=== PATIENT | female | born 1935 | race Caucasian/White ===

== ENCOUNTER → 2017-02-28 | Outpatient (CLI) | payer OTHER | LOC: FIMAGING 11:25 | PROVIDERS: ATTEND Internal Medicine | DX: Z12.31 Encounter for screening mammogram for malignant neoplasm of breast (principal) | CPT/HCPCS: G0202 ==

== ENCOUNTER 2017-11-12 20:00 | Emergency (ER) | payer OTHER ==
--- NOTE | 2017-11-12 20:09 | EDPHY ---
H & P Time Seen by Provider: 11/12/17 20:03 HPI/ROS: HPI Slurred speech, unsteady gait. 82-year-old female by ambulance from a local restaurant. She was eating dinner with her friend. She had a reported 2-3 glasses of wine. He felt that she seemed unsteady on her feet, Had slurred speech and had a possible right-sided facial droop. A physician friend of hers coincidently happen to be at this restaurant also. Because of this he thought she might be having a stroke and she was sent here emergently. On arrival the patient tells me"I am not having a stroke, I had a little bit too much to drink and I did not eat enough with it. I otherwise feel fine". At this time she has no complaints. ROS: Constitutional: No fever, no chills. As above. Eyes: No discharge. No changes in vision. ENT: No sore throat. No nasal congestion or rhinorrhea. Respiratory: No cough. No shortness of breath. Cardiac: No chest pain, no palpitations. Gastrointestinal: No abdominal pain, no vomiting, no diarrhea. Genitourinary: No hematuria. No dysuria or increased frequency with urination. Musculoskeletal: No back pain. No neck pain. No myalgias or arthralgias. Skin: No rashes. Neurological: No headache. No focal weakness or altered sensation. As above. Past medical history: Hypertension Social history: Lives alone but has family and friends close by. Non-smoker. Social alcohol. Physical Exam: General Appearance: Alert, no distress. Appears mildly intoxicated. Odor of alcohol on her breath. This patient is responding to questions appropriately and in full sentences albeit with mild slurred speech. This patient appears well-hydrated and well-nourished. Eyes: Pupils equal and round no pallor or injection. No lid edema, erythema or injection. No nystagmus. No photophobia. ENT, Mouth: Mucous membranes are moist. The pharyngeal tissues are unremarkable. No edema or swelling. No asymmetry suggestive of abscess. No erythema or exudates. Respiratory: There are no retractions, lungs are clear to auscultation with good air movement bilaterally. Cardiovascular: Regular rate and rhythm. No murmur. Gastrointestinal: Abdomen is soft and nontender, no masses, bowel sounds normal. No focal tenderness at McBurney's point. No Drake sign. Neurological: Motor sensory function is grossly intact. Cranial nerves are normal. Able to ambulate on her own. Slightly unsteady.. Skin: Warm and dry, no rashes. Musculoskeletal: Neck is supple and nontender. Extremities are symmetrical. All joints range without pain or impingement. Psychiatric: No agitation. No depression. Database: EKG: EKG time is 8:33 p.m.; EKG shows a narrow complex normal sinus rhythm with a ventricular rate of 70. The CO, QRS, QT intervals are within normal limits. There are no ST-T wave changes indicative of ischemic or injury pattern. No evidence of right heart strain. Interpreted by me. Imaging: Head CT without contrast: Negative for acute pathology. Age-related changes only. Results were discussed with staff radiologist Dr. Carlos Lopez. Chest x-ray PA and lateral; the cardiac mediastinal silhouette is unremarkable. No evidence of infiltrate or pneumothorax. No acute cardiopulmonary disease process noted. Interpreted by me. Carotid artery Doppler ultrasounds: Normal. Results were discussed with staff radiologist Dr. Carlos Lopez. Procedures: Emergency department course: IV placed. She was placed on a youth nutritional monitor. Vital signs reviewed. EKG obtained and reviewed by myself. After my initial neurologic Assessment she was sent for CT head without contrast. 8:40 p.m., patient re-evaluated. Resting comfortably at this time. She is asking to go home. Repeat neurologic Assessment is nonfocal. Her serum alcohol is 160. We are trying to contact a family member currently. 8:50 p.m., patient re-evaluated. Daughters and friend are at the bedside. I discussed her presentation as well as emergency department workup. Repeat neurologic assessment on this patient is nonfocal. She is able to ambulate under her own power without difficulty. I feel her presentation is consistent with alcohol intoxication And CVA is unlikely. Her daughters feel comfortable taking her home. They will watch her tonight. They can easily return the patient to the emergency department if needed. She will follow up with her primary care physician as needed tomorrow. Return to emergency department precautions were thoroughly discussed with the patient and her family. All of their questions were answered. The patient was discharged in good condition with her daughters. Differential Diagnosis: The differential diagnosis on this patient includes but is not limited to alcohol intoxication. CVA, TIA unlikely. This represents a partial list of diagnoses considered. These considerations are based on history, physical exam , past history, reassessment and diagnostic testing. Smoking Status: Never smoked Constitutional: Initial Vital Signs O2 Sat (%) 94 11/12/17 20:00 O2 Delivery Mode Room Air O2 (L/minute) 1 Allergies/Adverse Reactions: prochlorperazine edisylate [From Compazine] Allergy (Severe, Verified 03/10/11 03:44) THROAT SWELLS prochlorperazine maleate [From Compazine] Allergy (Severe, Verified 03/10/11 03: 44) THROAT SWELLS Penicillins Allergy (Verified 11/27/12 10:04) RASH- YEARS AGO Home Medications: Medication Instructions Recorded Acetaminophen/ASA/Caffeine 1 each PO PRN PRN 11/16/12 [Excedrin Tablet (OTC)] Cetirizine [ZyRTEC] 10 mg PO DAILY 11/16/12 Cholecalciferol (Vitamin D3) 2,000 unit PO DAILY 11/16/12 [Vitamin D3] Estradiol [ESTRADIOL] 0.5 mg PO SUTUTHSA 11/16/12 HYDROcodone/APAP 10/325 [[place] 1 each PO PRN PRN 11/16/12 10/325] Herbals/Supplements -Info Only 1 each PO AD 11/16/12 Levothyroxine [Synthroid 175 mcg 350 mcg PO DAILY 11/16/12 (RX)] Losartan Potassium [Cozaar 50 mg 50 mg PO DAILY 11/16/12 (RX)] Magnesium Oxide [Magnesium Oxide 400 mg PO DAILY 11/16/12 400 mg (OTC)] Multivit with Calcium,Iron,Min 1 each PO DAILY 11/16/12 [Tab A Franko] Naproxen 375 mg PO PRN PRN 11/16/12 Niacin [Niacin 500 mg (OTC)] 1,000 mg PO HS 11/16/12 Stuart-3 Fatty Acids/Fish Oil [Fish 1 each PO BID 11/16/12 Oil Extra Strength Sftgel] Low Altitude [employer] Defense Gunner Completed 11/16/12 11/16/12 Sertraline HCl 50 mg PO SUTUTHSA 11/16/12 Simvastatin 10 mg PO DAILY 11/16/12 Ubidecarenone [Co Q-10] 200 mg PO DAILY 11/16/12 Vitamin E [Vitamin E 400 units 400 unit PO DAILY 11/16/12 (OTC)] Zinc Gluconate [Zinc] 50 mg PO DAILY 11/16/12 celeCOXIB [Celebrex] 200 mg PO DAILY PRN 11/16/12 Cephalexin [Keflex] 500 mg PO TID 7 Days cap 10/03/15 Hydrocodone/APAP 5/325 [[place]unt[place] 1 tab PO Q6 PRN #15 tab 10/03/15 5/325 (RX)] Medical Decision Making - Data Points Laboratory Results: Laboratory Results 11/12/17 20:05 11/12/17 20:05 Departure - Departure Disposition: Home, Routine, Self-Care Clinical Impression: Alcohol intoxication Condition: Good Instructions: Alcohol Intoxication (ED) Additional Instructions: Read and follow provided instructions. Follow-up with your primary care physician tomorrow for re-evaluation. Take your medication as prescribed. Return to the emergency department for worsening symptoms, headache, loss of sensation or weakness in your extremities, heart palpitations, chest pain or other serious concerns. Referrals: Patient,NotPresent [Unknown] - As per Instructions
[2017-11-12 20:11] LABS: PLATELET COUNT 341 10^3/uL (150-400)
[2017-11-12 20:23] LABS: INR 0.96 (0.83-1.16)
--- NOTE | 2017-11-12 20:41 | CPEKG ---
Heart Rate: 70 RR Interval: 857 P-R Interval: 216 QRSD Interval: 78 QT Interval: 412 QTC Interval: 445 P [place]: 68 QRS [place]: -4 T Wave [place]: 41 EKG Severity - NORMAL ECG - EKG Impression: SINUS RHYTHM Electronically Signed By: West Breen 12-Nov-2017 21:10:25
[2017-11-12 21:33] VITALS: BP 112/76
== END 2017-11-12 21:33 | disposition home or self-care (01) ==
LOC: EDUNIT#
DX: F10.129 Alcohol abuse with intoxication, unspecified (principal); I10 Essential (primary) hypertension
CPT/HCPCS: 82947-QW; G0480

== ENCOUNTER → 2018-07-03 | Outpatient (CLI) | payer OTHER | LOC: FIMAGING 11:46 | PROVIDERS: ATTEND Internal Medicine | DX: M48.061 Spinal stenosis, lumbar region without neurogenic claudication (principal); M43.16 Spondylolisthesis, lumbar region; M53.86 Other specified dorsopathies, lumbar region ==

== ENCOUNTER 2018-08-15 05:14 | Inpatient (IN) | payer OTHER ==
[2018-08-15] MEDS ORDERED: LR 1,000 ML IV ONE (05:41)
[2018-08-15] MEDS ORDERED: LIDOCAINE 1% 2 ML INJ ID PRN (05:41)
[2018-08-15] MEDS ORDERED: GABAPENTIN 300 MG CAP PO ONE (05:41)
[2018-08-15] MEDS ORDERED: ceFAZolin 2 GM/DEXTROSE 100 ML IV ONE (05:41)
[2018-08-15] MEDS ORDERED: ACETAMINOPHEN 500 MG TAB PO ONE (05:41)
[2018-08-15] MEDS ORDERED: QUEtiapine FUMARATE 25 MG TAB PO PRN (06:24)
--- NOTE | 2018-08-15 06:24 | PDHPUP ---
History & Physical Update H&P update statement: This history and physical update is based on an assessment of the patient which was completed after admission or registration (within 24 hours), but prior to the surgery/procedure. H&P update: H&P reviewed & patient examined, no change in patient's condition since H&P completed
[2018-08-15] MEDS ORDERED: EPINEPHrine 1 MG/ML INJ ONE (06:29)
[2018-08-15] MEDS ORDERED: BUPIVACAINE 0.25% 30 ML SDV ONE (06:29)
[2018-08-15] MEDS ORDERED: THROMBIN (BOVINE) 5,000 UNIT VIAL TP ONE (06:29)
[2018-08-15] MEDS ORDERED: CHLORHEXIDINE GLUC HIBICLENS 118 ML BTL TP ONE (06:29)
[2018-08-15] MEDS ORDERED: BACITRACIN 50,000 UNITS/10 ML SYR IRR ONE (06:30)
--- NOTE | 2018-08-15 06:49 | PDANEPAE ---
ANE History of Present Illness lumbar spinal stenosis ANE Past Medical History - Cardiovascular History Hx Hypertension: No Hx Arrhythmias: No Hx Chest Pain: No Hx Coronary Artery / Peripheral Vascular Disease: No Hx CHF / Valvular Disease: No Hx Palpitations: No - Pulmonary History Hx COPD: No Hx Asthma/Reactive Airway Disease: No Hx Recent Upper Respiratory Infection: No Hx Oxygen in Use at Home: No Hx Sleep Apnea: No Sleep Apnea Screening Result - Last Documented: Negative - Neurologic History Hx Cerebrovascular Accident: No Hx Seizures: No Hx Dementia: No - Endocrine History Hx Diabetes: No Hypothyroid: No Hyperthyroid: No Obesity: no - Renal History Hx Renal Disorders: No - Liver History Hx Hepatic Disorders: No - Neurological & Psychiatric Hx Hx Neurological and Psychiatric Disorders: No - Cancer History Hx Cancer: No - Congenital Disorder History Hx Congenital Disorders: No - GI History GERD: no Hx Gastrointestinal Disorders: No - Other Health History Other Health History: none - Chronic Pain History Chronic Pain: No - Surgical History Prior Surgeries: none in last 5yrs. bilat knee replacements ANE Review of Systems Review of systems is: negative Review of Systems: - Exercise capacity METS (RN): 4 METS ANE Patient History - Allergies Allergies/Adverse Reactions: prochlorperazine edisylate [From Compazine] Allergy (Severe, Verified 08/07/18 16:48) THROAT SWELLS prochlorperazine maleate [From Compazine] Allergy (Severe, Verified 08/07/18 16: 48) THROAT SWELLS Penicillins Allergy (Verified 08/07/18 16:48) RASH- YEARS AGO - Home Medications Home medications: home medication list seen and reviewed Home Medications: Aspirin [Aspirin 325 mg (*)] 325 mg PO DAILY PRN 08/02/18 [Last Taken 08/12/18] QUEtiapine FUMARATE [Seroquel 25 mg (*)] 25 mg PO HS PRN 08/02/18 [Last Taken ] - NPO status NPO Status: no food or drink >8 hours NPO Since - Liquids (Date): 08/14/18 NPO Since - Liquids (Time): 18:00 NPO Since - Solids (Date): 08/14/18 NPO Since - Solids (Time): 18:00 - Anes Hx Anes Hx: no prior problems - Smoking Hx Smoking Status: Former smoker - Alcohol Use Alcohol Use: Rarely - Family Anes Hx Family Anes Hx: none Family Hx Anesthesia Complications: none ANE Labs/Vital Signs - Vital Signs Blood Pressure: 148/96 Heart Rate: 80 Respiratory Rate: 16 O2 Sat (%): 92 Height: 157.48 cm Weight: 58.967 kg ANE Physical Exam - Airway Neck exam: FROM Mallampati Score: Class 2 Mouth exam: normal dental/mouth exam - Pulmonary Pulmonary: no respiratory distress, clear to auscultation - Cardiovascular Cardiovascular: regular rate and rhythym, no murmur, rub, or gallop - ASA Status ASA Status: II ANE Anesthesia Plan Anesthesia Plan: general endotracheal anesthesia
[2018-08-15] MEDS ORDERED: fentaNYL 250 MCG/5 ML INJ ONE (06:57)
[2018-08-15] MEDS ORDERED: PROPOFOL/EMULSION 500 MG/50 ML BOTTLE IV ONE (06:58)
[2018-08-15] MEDS ORDERED: KETAMINE 200 MG/20 ML VIAL ONE (06:58)
[2018-08-15] MEDS ORDERED: LIDOCAINE 2% 5 ML SDV ONE (07:01)
[2018-08-15] MEDS ORDERED: SUCCINYLCHOLINE CHLORIDE 200 MG/10 ML SYR IVP ONE (07:02)
[2018-08-15] MEDS ORDERED: ONDANSETRON 4 MG/2 ML VIAL IVP PRN (07:27)
[2018-08-15] MEDS ORDERED: HYDROmorphONE/DILAUDID 1 MG/ML INJ IVP PRN (07:27)
[2018-08-15] MEDS ORDERED: ONDANSETRON DISINTEGRATING 4 MG TAB PO PRN (07:27)
[2018-08-15] MEDS ORDERED: diphenhydrAMINE 25 MG CAP PO PRN (07:27)
[2018-08-15] MEDS ORDERED: BISACODYL 10 MG SUPP PR PRN (07:27)
[2018-08-15] MEDS ORDERED: LACTULOSE 20 GM/30 ML UDCUP PO PRN (07:27)
[2018-08-15] MEDS ORDERED: NS 1,000 ML IV SCH (07:30)
[2018-08-15] MEDS ORDERED: LABETALOL HCL 5 MG/ML 20 ML MDV ONE (08:03)
[2018-08-15] MEDS ORDERED: ePHEDrine SULFATE 25 MG/5 ML SYR ONE (08:03)
[2018-08-15] MEDS ORDERED: NALOXONE HCL 0.4 MG/ML INJ IVP PRN (11:03)
[2018-08-15] MEDS ORDERED: LR 500 ML IV PRN (11:03)
[2018-08-15] MEDS ORDERED: MEPERIDINE 25 MG/0.5 ML AMP IVP PRN (11:03)
[2018-08-15] MEDS ORDERED: fentaNYL 100 MCG/2 ML INJ IVP PRN (11:03)
--- NOTE | 2018-08-15 11:03 | POSTANESTH ---
Post Anesthetic Evaluation Cardiovascular Status: Normal, Stable Respiratory Status: Normal, Stable Level of Consciousness/Mental Status: Mildly Sleepy, Arousable Pain Control: Adequate, Prn Tx Ordered Nausea/Vomiting Control: Adequate, Prn Tx Ordered Complications Possibly Related to Anesthesia: None Noted
--- NOTE | 2018-08-15 11:05 | PDMN ---
Medical Necessity Medical necessity: Pt meets IP criteria as of 08/15/[address] [facility] S-820 ( Lumbar Fusion); Medicare IP only procedure
[2018-08-15] MEDS ORDERED: fentaNYL 100 MCG/2 ML INJ ONE (12:03)
--- NOTE | 2018-08-15 12:08 | POSTOPPROG ---
Post Op Note Date of Operation: 08/15/18 Surgeon: Xuan Walker Lump Room Supervisor: ROSE Jones Anesthesiologist: MD Sandra Anesthesia: GET(General Endotracheal), Local (Specify) Pre-op Diagnosis: lumbar stenosis L3/4 and L4/5 Post-op Diagnosis: lumbar stenosis L3/4 and L4/5 Indication: LBP Procedure: L3/4 and L4/5 TLIF Findings: see op report Inf/Abcess present in the surg proc area at time of surgery?: No Depth: Deep Incisional (Fascial) EBL: 100-500 Total fluids administered: see anesthesia record Complications: none Drains: Choco Pan
[2018-08-15] MEDS ORDERED: METHOCARBAMOL 750 MG TAB ONE (12:12)
--- NOTE | 2018-08-15 12:12 | SOAPPROG ---
SOAP Progress Note Assessment/Plan: Post Op Visit: S: Awake and alert. NAD. Pt with lower back pain O: AFVSS/PERRLA/EOMI no droop CN 2-12 grossly intact +lt touch 5/5 BUE/BLE = CDI NADJA in place A/P: 83 yo female that is s/p TLIF L3/4 and L4/5 -orders in place -PT/OT pending -brace when out of bed -post op xrays in am -call with any questions or concerns -pt seen by Dr Walker as well Objective: Vital Signs Temp Pulse Resp BP Pulse Ox 36.4 C 80 16 148/96 H 92 08/15/18 11:52 08/15/18 06:54 08/15/18 06:54 08/15/18 06:54 08/15/18 06:54 ICD10 Worksheet Patient Problems: Problems Problem Status Onset Arthrodesis status Acute Lumbago Acute Lumbar stenosis Acute - ICD10 Problem Qualifiers (1) Lumbar stenosis (2) Lumbago (3) Arthrodesis status
[2018-08-15] MEDS: METHOCARBAMOL 750 MG TAB PO PRN (12:31)
--- NOTE | 2018-08-15 12:41 | GOP ---
DATE OF OPERATION: 08/15/2018 SURGEON: Ghazala Walker MD NEUROSURGEON: Ghazala Walker M.D. PALLET RECTIFIER: Edmond Jones PA-C PREOPERATIVE DIAGNOSIS: Lumbar instability with lumbar spondylolisthesis, L3-4, L4-5, lumbar stenosi s, axial low back pain, lumbosacral radiculopathy. POSTOPERATIVE DIAGNOSIS: Lumbar instability with lumbar spondylolisthesis, L3-4, L4-5, lumbar stenos is, axial low back pain, lumbosacral radiculopathy. PROCEDURE PERFORMED: Posterior lateral and intervertebral arthrodesis with bilateral decompressions L3-4, L4-5 (96576, [id number]), posterior segmental instrumentation L3, L4, L5 (29590), placement of biome chanical intervertebral device L3-4, L4-5 (32913 x 2), same incision bone graft harvest, spinal stere otaxis, microscope. FINDINGS: ESTIMATED BLOOD LOSS: 200 cc. INDICATIONS: The patient is an 83-year-old with terrible axial low back pain. She has intermittent radiating pain into her legs, but on the day of surgery she actually was not suffering from right leg pain. She has a lot of right knee pain. MRI demonstrated very severe stenosis at L4-5 and severe s tenosis at L3-4. There is even some early changes at L2-3 but nothing critical at that level and I s uggested a 2-level fusion with hardware and bilateral decompressions at each level. The risk of cont inued symptoms, nerve injury, spinal fluid leak, pseudoarthrosis and the possible need for additional spine surgery including revision spine surgery was discussed. She knew there was a chance surgery ma y fail to eliminate any symptoms. She also knew her surgical risks were increased given her advanced age. She wanted to proceed despite these risks. DESCRIPTION OF PROCEDURE: The patient was taken to the operating room, placed in a supine position. General anesthesia was begun. She was flipped prone on the Choco table. Care was taken to pad al l points of contact. Her back was sterilely prepped and draped in the usual fashion. A localizing x -ray was taken. I made a 6.5 cm incision above the L3-4, L4-5 interspaces. Subcutaneous tissue was dissected using Bovie cautery down to the fascia and a subperiosteal dissection was made down the barrera phil at L3, L4 and L5. The inferior lamina of L2 was exposed. A self-retaining retractor was placed. Localizing x-rays were taken. We denuded the bilateral hypertrophic facet joints at L3-4, L4-5, att ached a stealth reference frame to the L4 spinous process, performed an O-arm spin and using frame th e Stealth stereotaxy, placed pedicle screws bilaterally at L3, L4 and L5. They all stimulated at acc eptable levels. 3D imaging was performed demonstrating good position of all the hardware. We then t ook a pre bent serena, put it down over the screws at L3, 4, 5, placed a self-retaining retractor, distr acted between L3, 4, 5 and got some reduction of the spondylolisthesis, removed all the soft tissue o f the bone at L3, 4, 5, harvested the L4 spinous process, the inferior L3 spinous process and the ros tral L5 spinous process for autologous grafting purposes. We then drilled bilateral laminas at L3-4, L4-5 to decompress the thecal sac and the neuroforamen bilaterally and on the microscope we did perf orm radical bilateral decompressions on each side including the foramen on the left. We removed the left L3-4 and 4-5 facet joints. We then mobilized the traversing L4 root and the traversing L5 root at the 3-4, 4-5 level respectively, swept it medially, incised the L3-4 disk, removed the disk and th e cartilaginous endplates. We roughened the subchondral bone to create arthrodesis at 3-4 and we did likewise at 4-5 where we removed the disk and the cartilaginous endplates. We roughened the subchon dral bone to create arthrodesis at those levels. We then packed bone autograft and BMP into each spa ce and they had been properly sized and we chose 7 x 28 mm expandable devices that were inserted unde r fluoroscopic guidance. They were then expanded and the L3-4 device impacted slightly into the L4 r ostral vertebral body, but it was in excellent position. The L4-5 device looked terrific. They were both in a very good position and I was happy with the device placement. We then decorticated all th e remaining bone posterolaterally bilaterally. We relaxed our distraction between L3-4, 4-5 to creat e more lordosis and then final tightened the cap screws according to company's specification. We the n placed bone autograft and BMP posterolaterally bilaterally followed by a subfascial drain. We then closed the incision in multiple layers using Vicryl sutures. Steri-Strips were applied to the skin. The patient was reversed from anesthesia, extubated and transferred to recovery room in stable cond ition. There were no complications. COMPLICATIONS: None. INSTRUMENTATION USED: [employer] 5.5 mm system with titanium serena. We used 7 x 28 mm cages at each level. /[id number]/MODL
[2018-08-15] MEDS: ceFAZolin 2 GM/DEXTROSE 100 ML IV SCH ×2 (14:05→21:33)
[2018-08-15] MEDS: ACETAMINOPHEN 500 MG TAB PO SCH ×2 (14:09→21:32)
[2018-08-15] MEDS: GABAPENTIN 300 MG CAP PO SCH ×2 (14:10→21:32)
[2018-08-15] MEDS: FAMOTIDINE 20 MG TAB PO SCH ×2 (14:11→21:32)
[2018-08-15] MEDS: SENNOSIDES/DOCUSATE SODIUM TAB PO SCH ×2 (14:11→21:33)
[2018-08-15] MEDS ORDERED: NS BOLUS 500 ML (Wide open) IV ONE (18:00)
[2018-08-15 19:32] LABS: PLATELET COUNT 164 10^3/uL (150-400)
[2018-08-16 05:50] LABS: PLATELET COUNT 159 10^3/uL (150-400)
[2018-08-16] MEDS: ACETAMINOPHEN 500 MG TAB PO SCH ×3 (06:28→21:38)
[2018-08-16] MEDS: GABAPENTIN 300 MG CAP PO SCH ×3 (06:29→21:37)
--- NOTE | 2018-08-16 06:36 | NEUSURGPN ---
Date of Surgery: 08/15/18 Post Op Day: 1 Assessment/Plan: Assessment: 83 yo female that is s/p TLIF L3/4 and L4/5 POD #1 Plan: -s/p TLIF L3/4 and L4/5: pt with expected lower back pain -orders in place -PT/OT pending -brace when out of bed -NADJA in place-475 since surgery-will continue with drain. 55 in last 12 hrs. -UO is normal now. UA shows 1+ leuks-UC ordered. Creat 0.7. H/H fine -post op xrays in am -call with any questions or concerns -pt seen by Dr Walker as well Subjective: Awake and alert. NAD. Eating/drinking and voiding. No f/c/n/v/d. Objective: AFVSS/PERRLA/EOMI no droop CN 2-12 grossly intact +lt touch 5/5 BUE/BLE = CDI NADJA in place Neuro Check Frequency: per routine Urinary Catheter in Place: No Catheter Insertion Date: 08/15/18 - Physician Discussed Patient with Dr.: Aaron Patient Seen by : Aaron Neurosurgery Physical Exam - Vitals, I&O, Labs I and O 08/15/18 08/16/18 08/17/18 05:59 05:59 05:59 Intake Total 4380 Output Total 2295 85 Balance 5 -85 Weight 58.96 kg Intake: Oral (ml) 1150 IV Intake (ml) 3230 Output: Urine (ml) 1675 30 Catheter 1675 30 Estimated Blood Loss (ml) 200 NADJA Drain Output (ml) 420 55 Left Back Choco Pan 420 55 Other: Bladder Scan Volume (ml) Catheter 0 Vital Signs Temp Pulse Resp BP Pulse Ox 36.8 C 85 14 94/52 L 95 08/16/18 04:00 08/16/18 04:00 08/16/18 04:00 08/16/18 04:00 08/16/18 04:00 Laboratory Results 08/16/18 04:30 08/16/18 04:30 ICD10 Worksheet Patient Problems: Problems Problem Status Onset Arthrodesis status Acute Lumbago Acute Lumbar stenosis Acute - ICD10 Problem Qualifiers (1) Lumbar stenosis (2) Lumbago (3) Arthrodesis status
[2018-08-16] MEDS: FAMOTIDINE 20 MG TAB PO SCH ×2 (09:55→21:37)
[2018-08-16] MEDS: SENNOSIDES/DOCUSATE SODIUM TAB PO SCH ×2 (09:55→21:37)
[2018-08-16] MEDS: oxyCODONE IR 5 MG TAB PO PRN ×2 (10:23→15:43)
[2018-08-16] MEDS: METHOCARBAMOL 750 MG TAB PO PRN ×2 (10:23→16:46)
--- NOTE | 2018-08-16 11:36 | ASMTCMCOM ---
CM Note CM Note Notes: Pt had planned surgery, was pre-arraged with [facility] by MD office. Pt resides alone and will have cousin stay with her at d/c. OT rec [facility] Referral sent in [employer]. D/c plan of care: Home with [facility] Date Signed: 08/16/2018 11:35 AM Electronically Signed By:MATILDA Baltazar
[2018-08-17] MEDS: GABAPENTIN 300 MG CAP PO SCH ×3 (06:02→21:49)
[2018-08-17] MEDS: ACETAMINOPHEN 500 MG TAB PO SCH ×3 (06:28→21:48)
--- NOTE | 2018-08-17 08:08 | SOAPPROG ---
SOAP Progress Note Assessment/Plan: Assessment: Plan: Subjective: Lying in bed, pain controlled. States she has occasional pain in her left lateral thigh which improves when she flexes her left hip No other issues. Objective: Vital Signs Temp Pulse Resp BP Pulse Ox 36.6 C 83 16 112/52 L 98 08/17/18 07:49 08/17/18 07:49 08/17/18 07:49 08/17/18 07:49 08/17/18 07:49 Laboratory Results 08/16/18 04:30 08/16/18 04:30 08/16/18 08/17/18 08/18/18 05:59 05:59 05:59 Intake Total 4380 1000 Output Total 2295 885 340 Balance 2085 115 -340 Post op xrays show well positioned hardware L3-5 neuro: MEJIAS, sens +LT follows commands speech clear Dressing: CDI NADJA : 40 ml (will remove today) ICD10 Worksheet Patient Problems: Problems Problem Status Onset Arthrodesis status Acute Lumbago Acute Lumbar stenosis Acute
--- NOTE | 2018-08-17 08:13 | PDIAF ---
- Diagnosis Diagnosis: Lumbar fusion L3-5 Code Status: Full Code - Medication Management Discharge Medications: electronically signed and located in the Home Medication List. - Orders Services needed: Home Care, Registered Nurse, Physical Therapy, Occupational Therapy Home Care Face to Face: I certify that this patient was under my care and that I had the required [id number] encounter meeting the encounter requirements on the discharge day. My findings support the fact that the patient is homebound as defined in Home Care Face to Face Continued: CMS Chapter 7 Medicare Benefits Manual 30.1.1 , The condition of the patient is such that there exists a normal inability to leave home and consequently, leaving home would require a considerable and taxing effort. Diet Recommendation: no restrictions on diet Diet Texture: Regular Texture Diet Wound Care Instructions: check incision daily, serjio with any redness, drainage or increasing pain Additional Instructions: Wear LSO when out of bed no bending, twisting or lifting over 10 lbs x 6 weeks call [phone] to confirm post op appt or with any questions/concerns. - Follow Up Care Current Providers and Referrals: Anil Thomas MD [Primary Care Provider] -
[2018-08-17] MEDS: FAMOTIDINE 20 MG TAB PO SCH ×2 (08:52→21:48)
[2018-08-17] MEDS: POLYETHYLENE GLYCOL 3350 17 GM PKT PO PRN (08:54)
[2018-08-17] MEDS: SENNOSIDES/DOCUSATE SODIUM TAB PO SCH ×2 (08:54→21:48)
[2018-08-17] MEDS: MAGNESIUM HYDROXIDE 30 ML UDCUP PO PRN (08:54)
[2018-08-17] MEDS: oxyCODONE IR 5 MG TAB PO PRN ×3 (10:14→17:47)
[2018-08-17] MEDS: METHOCARBAMOL 750 MG TAB PO PRN (17:47)
[2018-08-18] MEDS: ACETAMINOPHEN 500 MG TAB PO SCH ×3 (06:29→22:56)
[2018-08-18] MEDS: GABAPENTIN 300 MG CAP PO SCH (07:44)
--- NOTE | 2018-08-18 08:36 | NEUSURGPN ---
Date of Surgery: 08/15/18 Post Op Day: 3 Assessment/Plan: Assessment: 83 yo female that is s/p TLIF L3/4 and L4/5 POD #3 Plan: -s/p TLIF L3/4 and L4/5: pt with expected lower back pain -Patient and RN report some slurred speech with increase in Gabapentin, patient denies any leg symptoms. Will DC gabapentin -PT/OT -brace when out of bed -post op xrays show stable hardware placement -Case management: plan for dispo Monday pending therapies recs -call with any questions or concerns -discussed patient with Dr Walker Subjective: expected back pain, no leg pain Objective: AxO x4 PERRLA/EOM No facial droop MEJIAS x4 5/5 BUE, BLE Incision CDI with steri strips Neuro Check Frequency: per routine Urinary Catheter in Place: No Catheter Insertion Date: 08/15/18 - Physician Discussed Patient with : Aaron Neurosurgery Physical Exam - Vitals, I&O, Labs I and O 08/17/18 08/18/18 08/19/18 05:59 05:59 05:59 Intake Total 1000 Output Total 885 1668 Balance 115 -1668 Intake: Oral (ml) 1000 Output: Urine (ml) 530 1600 Catheter 30 Toilet 500 1600 NADJA Drain Output (ml) 355 68 Left Back Choco Pan 355 68 Other: Intake Quantity Yes Yes Sufficient Number of Voids Toilet 1 1 Bladder Scan Volume (ml) Toilet 393 Post Void Residual Scan Volume (ml) Toilet 1 Vital Signs Temp Pulse Resp BP Pulse Ox 37.1 C 78 16 120/75 91 L 08/18/18 07:05 08/18/18 07:05 08/18/18 07:05 08/18/18 07:05 08/18/18 07:05 Laboratory Results 08/16/18 04:30 08/16/18 04:30 ICD10 Worksheet Patient Problems: Problems Problem Status Onset Arthrodesis status Acute Lumbago Acute Lumbar stenosis Acute
[2018-08-18] MEDS: FAMOTIDINE 20 MG TAB PO SCH ×2 (09:48→20:19)
[2018-08-18] MEDS: ENOXAPARIN 40 MG/0.4 ML SYR SC SCH (09:49)
[2018-08-18] MEDS: SENNOSIDES/DOCUSATE SODIUM TAB PO SCH ×2 (09:49→20:19)
[2018-08-18] MEDS: METHOCARBAMOL 750 MG TAB PO PRN ×2 (10:38→16:42)
[2018-08-18] MEDS: traMADol 50 MG TAB PO PRN ×2 (13:51→20:19)
[2018-08-19] MEDS: traMADol 50 MG TAB PO PRN ×2 (05:26→12:03)
[2018-08-19] MEDS: ACETAMINOPHEN 500 MG TAB PO SCH ×2 (06:21→14:06)
[2018-08-19 07:39] VITALS: BP 151/71
[2018-08-19] MEDS: MAGNESIUM HYDROXIDE 30 ML UDCUP PO PRN (08:47)
[2018-08-19] MEDS: SENNOSIDES/DOCUSATE SODIUM TAB PO SCH (08:47)
[2018-08-19] MEDS: ENOXAPARIN 40 MG/0.4 ML SYR SC SCH (08:47)
[2018-08-19] MEDS: POLYETHYLENE GLYCOL 3350 17 GM PKT PO PRN (08:47)
[2018-08-19] MEDS: FAMOTIDINE 20 MG TAB PO SCH (08:49)
--- NOTE | 2018-08-19 09:09 | NEUSURGPN ---
Date of Surgery: 08/15/18 Post Op Day: 4 Assessment/Plan: Assessment: 83 yo female that is s/p TLIF L3/4 and L4/5 POD #4 Plan: -s/p TLIF L3/4 and L4/5: pt with expected lower back pain, mild leg pain this am after stopping Gabapentin yesterday. Will restart Gabapentin 100mg BID. -PT/OT -brace when out of bed -post op xrays show stable hardware placement -Case management: plan for dispo Monday pending therapies recs -Ok to discharge home today with [facility] -Ok to shower -call with any questions or concerns -discussed patient with Dr Walker Subjective: mild leg pain, wants to go home Objective: AxO x4 PERRLA/EOMI MEJIAS x4 5/5 BUE, BLE Incision CDI with steri strips Neuro Check Frequency: per routine Urinary Catheter in Place: No Catheter Insertion Date: 08/15/18 - Physician Discussed Patient with : [facility] Physical Exam - Vitals, I&O, Labs I and O 08/18/18 08/19/18 08/20/18 05:59 05:59 05:59 Output Total 1668 1640 Balance -1668 -1640 Output: Urine (ml) 1600 1640 Bedside Commode 600 Toilet 1600 1040 NADJA Drain Output (ml) 68 Left Back Choco Pan 68 Other: Intake Quantity Yes Yes Sufficient Number of Voids Toilet 1 2 1 Number of Stools Toilet 1 Post Void Residual Scan Volume (ml) Toilet 70 Microbiology 08/15/18 18:41 Urine Culture - Final Urine,Catheterized Vital Signs Temp Pulse Resp BP Pulse Ox 36.9 C 80 16 151/71 H 92 08/19/18 07:39 08/19/18 07:39 08/19/18 07:39 08/19/18 07:39 08/19/18 07:39 Laboratory Results 08/16/18 04:30 08/16/18 04:30 ICD10 Worksheet Patient Problems: Problems Problem Status Onset Arthrodesis status Acute Lumbago Acute Lumbar stenosis Acute
--- NOTE | 2018-08-19 09:13 | PDIAF ---
- Diagnosis Diagnosis: S/P L3-4, L4-5 TLIF Code Status: Full Code - Medication Management Discharge Medications: electronically signed and located in the Home Medication List. PICC Care - Routine: N/A - Orders Services needed: Home Care, Registered Nurse, Physical Therapy, Occupational Therapy Home Care Face to Face: I certify that this patient was under my care and that I had the required [id number] encounter meeting the encounter requirements on the discharge day. My findings support the fact that the patient is homebound as defined in Home Care Face to Face Continued: CMS Chapter 7 Medicare Benefits Manual 30.1.1 , The condition of the patient is such that there exists a normal inability to leave home and consequently, leaving home would require a considerable and taxing effort. Diet Recommendation: no restrictions on diet Diet Texture: Regular Texture Diet Additional Instructions: Wear LSO when out of bed no bending, twisting or lifting over 10 lbs x 6 weeks call [phone] to confirm post op appt or with any questions/concerns. - Follow Up Care Current Providers and Referrals: Anil Thomas MD [Primary Care Provider] - Xuan Walker MD [Medical Doctor] - follow up in 2 weeks
--- NOTE | 2018-08-19 10:02 | ASMTLACE ---
LACE Length of stay for Answers: 3 days current admission Acuity / Level of Answers: Yes Care: Did the patient have an inpatient admission? Comorbidities - select Answers: Other Notes: HTN all that apply # of Emergency department Answers: 0 visits in the last 6 months Score: 7 Date Signed: 08/19/2018 10:01 AM Electronically Signed By:Sue Perdomo RN
[2018-08-19] MEDS: GABAPENTIN 100 MG CAP PO SCH ×2 (10:09→12:03)
--- NOTE | 2018-08-19 10:24 | ASMTDCNOTE ---
Case Management Discharge Discharge Order Complete? Answers: Yes Patient to Obtain Answers: Independently Medications Transportation Arranged Answers: Family/Friends Faxed Final Orders Answers: Yes Agency/Facility Transfer Answers: Yes Report Printed & Faxed to Receiving Agency Discharge Comments Notes: D/w [employer] TECHNOLOGIST, final orders faxed. [facility] notified, cousin to stay with pt after dc. Date Signed: 08/19/2018 10:24 AM Electronically Signed By:Sue Perdomo RN
--- NOTE | 2018-08-19 16:54 | ASDISCHSUM ---
Discharge Information Plan Status:Home with Home Health Medically Cleared to Leave: Discharge Date:08/19/2018 02:59 PM CM D/C Disposition:Home Health Service ADT D/C Disposition:Home, Routine, Self-Care Projected Discharge Date:08/17/2018 11:00 AM Transportation at D/C:Family Discharge Delay Reason: Follow-Up Date:08/17/2018 11:00 AM Discharge Slot: Final Diagnosis: Placement Information Referral Type:*Home Health Care Services Referral ID:[id number] [facility] Address 1:[address] [address] Address 2: City:[place] Selection Factors: State:[place] Patient Contact Information Contact Name:JALEEL Relationship:Son Address:[address] [place] [address] City:[place] Alternate Phone: State/Zip Code:[place] [address] Email: Financial Information Financial Class:Medicare Primary Plan Desc:MEDICARE INPATIENT Primary Plan Number:[id number] Secondary Plan Desc:CZECH DRIS[employer] [place] Secondary Plan Number:[id number] Assessment Information LACE LACE Length of stay for Answers: 3 days current admission Acuity / Level of Answers: Yes Care: Did the patient have an inpatient admission? Comorbidities - select Answers: Other Notes: HTN all that apply # of Emergency department Answers: 0 visits in the last 6 months Score: 7 Date Signed: 08/19/2018 10:01 AM Electronically Signed By:Sue Perdomo RN [facility] CM Progress Note CM Note CM Note Notes: Pt had planned surgery, was pre-arraged with [facility] by MD office. Pt resides alone and will have cousin stay with her at d/c. OT rec [facility], PT eval pending. Pt does want [facility], Sue in admissions is notified. Referral sent in [employer]. D/c plan of care: Home with [facility] Date Signed: 08/16/2018 11:35 AM Electronically Signed By:MATILDA Baltazar Case Management Discharge Plan Note Case Management Discharge Discharge Order Complete? Answers: Yes Patient to Obtain Answers: Independently Medications Transportation Arranged Answers: Family/Friends Faxed Final Orders Answers: Yes Agency/Facility Transfer Answers: Yes Report Printed & Faxed to Receiving Agency Discharge Comments Notes: D/w COMPUTER SCIENCE TEACHER, final orders faxed. [facility] notified, cousin to stay with pt after dc. Date Signed: 08/19/2018 10:24 AM Electronically Signed By:Sue Perdomo RN Intervention Information
== END 2018-08-19 14:59 | disposition home health service (06) | DRG 455 ==
LOC: F3E 05:14 → F3N 07:33
PROVIDERS: ADMIT Neurological Surgery; ATTEND Neurological Surgery
DX: M43.16 Spondylolisthesis, lumbar region (principal); M54.17 Radiculopathy, lumbosacral region; Z96.653 Presence of artificial knee joint, bilateral; Z87.891 Personal history of nicotine dependence
CPT/HCPCS: 97116-GP; 97161-GP; 97165-GO; 97530-GP; 97535-GO; C1713; J0171; J0330; J0690; J1650; J2704; J3010